=== PATIENT | female | born 1955 | race Caucasian/White ===

== ENCOUNTER 2018-05-01 09:05 | Emergency (ER) | payer OTHER ==
[2018-05-01 10:32] VITALS: BP 134/67
--- NOTE | 2018-05-01 10:46 | UC ---
Throat Pain/Nasal [place] HPI - HPI Summary HPI Summary: The patient is a 62-year-old female that presents here with nasal congestion, postnasal drip and cough. She has felt feverish and had chills. She denies any chest pain or shortness of breath. She has had some muscle aches. She is very low energy. She has no nausea vomiting or diarrhea. She has been hoarse since yesterday. Her symptoms have been going on for about 48 hours. - History of Current Complaint Chief Complaint: UCRespiratory Stated Complaint: STUFFY,ACHEY Time Seen by Provider: 05/01/18 10:37 Hx Obtained From: Patient Onset/Duration: Gradual Onset, Lasting Days Severity: Moderate Pain Intensity: 0 Pain Scale Used: 0-10 Numeric Cough: Nonproductive Associated Signs & Symptoms: Positive: Hoarseness - Epiglottits Risk Factors Epiglottis Risk Factors: Negative - Allergies/Home Medications Allergies/Adverse Reactions: Allergies Allergy/AdvReac Type Severity Reaction Status Date / Time No Known Allergies Allergy Verified 05/01/18 10:27 Home Medications: Home Medications Ascorbic Acid TAB* [Vitamin C TAB*] 500 mg PO DAILY 05/01/18 [History Confirmed 05/01/18] Cholecalciferol TAB* [Vitamin D TAB*] 1,000 unit PO DAILY 05/01/18 [History Confirmed 05/01/18] Vitamin B Complex TAB* [B Complex-50*] 1 tab PO DAILY 05/01/18 [History Confirmed 05/01/18] PMH/Surg Hx/FS Hx/Imm Hx Previously Healthy: Yes - Surgical History Surgical History: Yes Surgery Procedure, Year, and Place: rene. hernia - Family History Known Family History: Positive: Hypertension - Social History Alcohol Use: Occasionally Substance Use Type: None Smoking Status (MU): Heavy Every Day Tobacco Smoker Type: Cigarettes Amount Used/How Often: 1/2 PPD Review of Systems Constitutional: Negative Skin: Negative Eyes: Negative ENT: Nasal Discharge, Sinus Congestion Respiratory: Cough Cardiovascular: Negative Gastrointestinal: Negative Genitourinary: Negative Motor: Negative Neurovascular: Negative Musculoskeletal: Negative Neurological: Negative Psychological: Negative All Other Systems Reviewed And Are Negative: Yes Physical Exam Triage Information Reviewed: Yes Appearance: Well-Appearing, No Pain Distress, Well-Nourished Vital Signs: Initial Vital Signs Temp 97.5 F 05/01/18 10:29 Pulse 83 10/26/18 10:29 Resp 17 05/01/18 10:29 BP 134/67 05/01/18 10:29 Pulse Ox 98 05/01/18 10:29 Vital Signs Reviewed: Yes Eyes: Positive: Conjunctiva Clear ENT: Positive: Hearing grossly normal, Nasal congestion, Hoarse voice. Negative : Nasal drainage, Tonsillar swelling, Tonsillar exudate, Trismus, Muffled voice , Dental tenderness, Sinus tenderness Neck: Positive: Supple, Nontender, No Lymphadenopathy Respiratory: Positive: Lungs clear, Normal breath sounds, No respiratory distress Cardiovascular: Positive: RRR, No Murmur Musculoskeletal: Positive: ROM Intact, No Edema Neurological: Positive: Alert Psychological Exam: Normal Skin Exam: Normal Diagnostics - Laboratory Diagnostic Studies Completed/Ordered: influenza (-) Throat Pain/Nasal Course/Dx - Differential Dx/Diagnosis Provider Diagnoses: viral URI. laryngitis Discharge - Sign-Out/Discharge Documenting (check all that apply): Patient Departure All imaging exams completed and their final reports reviewed: No Studies - Discharge Plan Condition: Stable Disposition: HOME Prescriptions: Benzonatate CAP* [Tessalon CAP*] 100 - 200 mg PO TID PRN #28 cap PRN Reason: Cough Patient Education Materials: Laryngitis (ED), Upper Respiratory Infection (ED) Forms: *Work Release Referrals: Vanessa Patel MD [Primary Care Provider] - 3 Days (if not better) Additional Instructions: recheck for new or worsening symptoms - Billing Disposition and Condition Condition: STABLE Disposition: Home
== END 2018-05-01 11:15 | disposition home or self-care (01) ==
LOC: UCCORT 09:05
DX: J06.9 Acute upper respiratory infection, unspecified (principal); J04.0 Acute laryngitis; F17.210 Nicotine dependence, cigarettes, uncomplicated
CPT/HCPCS: 99202; G0463